=== PATIENT | female | born 1955 | race African-American/Black ===

== ENCOUNTER 2017-04-11 08:40 | Inpatient (IN) | payer OTHER ==
[~2017-04-11] VITALS: Ht 170.2 cm; Wt 75.1 kg
[2017-04-11 09:56] LABS: PLATELET COUNT 184 x10^3mcL (130-400)
[2017-04-11 09:58] LABS: RED CELL DISTRIBUTION WIDTH 15.7 % (11.5-14.5)
[2017-04-11 10:13] LABS: BILIRUBIN TOTAL 0.6 mg/dL (0.20-1.00); CALCIUM 8.6 mg/dL (8.5-10.1); CARBON DIOXIDE 27.9 mmol/L (21-32); CREATININE SERUM 1.4 mg/dL (0.6-1.0); TOTAL PROTEIN, SERUM 7.9 g/dL (6.4-8.2)
[2017-04-11 10:15] LABS: ALBUMIN 2.8 g/dL (3.4-5.0); POTASSIUM SERUM 2.6 mmol/L (3.5-5.1)
[2017-04-11 10:25] LABS: microscopic required? YES; urine erythrocyte 2+ (NEGATIVE)
[2017-04-11] MEDS ORDERED: TRAMADOL HCL50 MG PO (11:06)
[2017-04-11] MEDS ORDERED: MOTRIN (11:06)
[2017-04-11] MEDS ORDERED: CIMZIA200 MG (11:06)
[2017-04-11] MEDS ORDERED: METHOTREXATE2.5 M2 (11:07)
[2017-04-11] MEDS ORDERED: LASIX (11:08)
[2017-04-11] MEDS ORDERED: EFFER-K10 MEQ PO (11:08)
[2017-04-11 11:12] LABS: BAND NEUTROPHIL 14 % (0-10); BASOPHIL 0 % (0-2); MONOCYTE 3 % (0-7); PLATELET MORPHOLOGY PLATELETS NORMAL; SEGMENTED NEUTROPHILS 79 % (37-75); rbc morphology (normal/abnorm) ABNORMAL (NORMAL); tear drop cell (dacryocyte) 1+
[2017-04-11 11:36] LABS: RED BLOOD CELLS 3.72 M/mm3 (4.10-5.10)
[2017-04-11 11:42] LABS: MAGNESIUM 1.6 mg/dL (1.8-2.4); PHOSPHOROUS 2.8 mg/dL (2.5-4.9)
[2017-04-11 11:48] LABS: TOTAL IRON BINDING CAPACITY 299 ug/dL (250-450)
[2017-04-11 11:49] LABS: IRON 11 ug/dL (50-170)
[2017-04-11 14:42] VITALS: BP 93/54
[2017-04-11 16:55] VITALS: BP 95/58
[2017-04-11 19:56] LABS: CALCIUM 7.9 mg/dL (8.5-10.1); CARBON DIOXIDE 22.5 mmol/L (21-32); CREATININE SERUM 1.4 mg/dL (0.6-1.0); POTASSIUM SERUM 3.4 mmol/L (3.5-5.1)
[2017-04-11 20:31] LABS: AMPHETAMINE QUAL UR NONE DETECTED (NEG <=1000)
[2017-04-11 21:52] VITALS: BP 90/50
[2017-04-12 05:58] VITALS: BP 92/47
[2017-04-12 06:44] LABS: PLATELET COUNT 132 x10^3mcL (130-400)
[2017-04-12 06:45] LABS: CALCIUM 8.4 mg/dL (8.5-10.1); CARBON DIOXIDE 25.7 mmol/L (21-32); CREATININE SERUM 1.3 mg/dL (0.6-1.0); MAGNESIUM 1.8 mg/dL (1.8-2.4); PHOSPHOROUS 1.9 mg/dL (2.5-4.9)
[2017-04-12 06:49] LABS: RED CELL DISTRIBUTION WIDTH 15.5 % (11.5-14.5)
[2017-04-12 09:29] VITALS: BP 98/53
[2017-04-12 10:12] LABS: BAND NEUTROPHIL 16 % (0-10); BASOPHIL 0 % (0-2); MONOCYTE 7 % (0-7); SEGMENTED NEUTROPHILS 70 % (37-75)
[2017-04-12 10:13] LABS: PLATELET MORPHOLOGY PLATELETS NORMAL; rbc morphology (normal/abnorm) ABNORMAL (NORMAL)
[2017-04-12 12:44] VITALS: BP 115/67
[2017-04-12 17:34] VITALS: BP 127/76
[2017-04-12 21:10] VITALS: BP 115/65
[2017-04-13 01:44] VITALS: BP 135/71
[2017-04-13 05:15] VITALS: BP 130/75
[2017-04-13 06:23] LABS: PLATELET COUNT 139 x10^3mcL (130-400)
[2017-04-13 06:35] LABS: BASOPHIL % 0 % (0-2); RED CELL DISTRIBUTION WIDTH 16.3 % (11.5-14.5)
[2017-04-13 06:52] LABS: CALCIUM 8.2 mg/dL (8.5-10.1); CREATININE SERUM 1.2 mg/dL (0.6-1.0); MAGNESIUM 1.7 mg/dL (1.8-2.4); PHOSPHOROUS 2.1 mg/dL (2.5-4.9); POTASSIUM SERUM 3.7 mmol/L (3.5-5.1)
[2017-04-13 08:58] VITALS: BP 105/58
[2017-04-13 12:32] VITALS: BP 135/66
[2017-04-13 16:40] VITALS: BP 113/70
[2017-04-13 20:24] VITALS: BP 112/59
[2017-04-14 06:24] VITALS: BP 115/64
[2017-04-14 06:34] LABS: CARBON DIOXIDE 22.9 mmol/L (21-32); CREATININE SERUM 1.1 mg/dL (0.6-1.0); MAGNESIUM 1.7 mg/dL (1.8-2.4); PHOSPHOROUS 2.7 mg/dL (2.5-4.9); POTASSIUM SERUM 3.2 mmol/L (3.5-5.1)
[2017-04-14 06:42] LABS: PLATELET COUNT 153 x10^3mcL (130-400)
[2017-04-14 07:09] LABS: BASOPHIL % 0 % (0-2); RED CELL DISTRIBUTION WIDTH 16.2 % (11.5-14.5)
[2017-04-14 09:08] VITALS: BP 97/52
[2017-04-14] MEDS ORDERED: LEVAQUIN750 MG PO (09:33)
[2017-04-14] MEDS ORDERED: LAC PO (09:42)
[2017-04-14] MEDS ORDERED: ULT50 PO (09:42)
[2017-04-14 13:11] VITALS: BP 97/52
== END 2017-04-14 14:40 | disposition home or self-care (01) | DRG 689 ==
LOC: ED 08:40 → DU 10:49 → MU 04-14 09:29
PROVIDERS: Emergency Medicine; ADMIT Family Medicine
DX: N39.0 Urinary tract infection, site not specified (principal); N17.0 Acute kidney failure with tubular necrosis; E43 Unspecified severe protein-calorie malnutrition; E87.1 Hypo-osmolality and hyponatremia; E87.6 Hypokalemia; E83.39 Other disorders of phosphorus metabolism; E83.42 Hypomagnesemia; R73.03 Prediabetes; D64.9 Anemia, unspecified; M06.9 Rheumatoid arthritis, unspecified; N28.1 Cyst of kidney, acquired; E03.9 Hypothyroidism, unspecified; Z98.84 Bariatric surgery status; Z68.25 Body mass index [BMI] 25.0-25.9, adult; Z79.899 Other long term (current) drug therapy
CPT/HCPCS: 82962; 83880; 87804; 90658; J1100; J1885; J1956; J2270; J2405; J3475; J3480; J7030; J8610; Q0092

== ENCOUNTER 2017-04-22 12:21 | Inpatient (IN) | payer OTHER ==
[~2017-04-22] VITALS: Ht 172.7 cm; Wt 75.8 kg
[~2017-04-22 12:21] MED LIST: CIMZIA200 MG; EFFER-K10 MEQ PO; LAC PO; LASIX; LEVAQUIN750 MG PO; METHOTREXATE2.5 M2; MOTRIN; TRAMADOL HCL50 MG PO; ULT50 PO
[2017-04-22 13:15] LABS: BASOPHIL % 0.3 % (0-2)
[2017-04-22 13:16] LABS: PLATELET COUNT 436 x10^3mcL (130-400); RED CELL DISTRIBUTION WIDTH 16.7 % (11.5-14.5)
[2017-04-22 13:23] LABS: CARBON DIOXIDE 29.6 mmol/L (21-32); CREATININE SERUM 1.3 mg/dL (0.6-1.0); POTASSIUM SERUM 3.1 mmol/L (3.5-5.1)
[2017-04-22 13:27] LABS: BILIRUBIN TOTAL 0.2 mg/dL (0.20-1.00)
[2017-04-22 13:32] LABS: TOTAL PROTEIN, SERUM 8.7 g/dL (6.4-8.2)
[2017-04-22 13:54] LABS: T3 TOTAL 0.82 ng/mL
[2017-04-22 14:32] LABS: FREE T4 1.34 ng/dL (0.76-1.46); FREE THYROXINE INDEX 3.6 ug/dL (1.4-4.5); T4(THYROXINE) 9.7 ug/dL (4.7-13.3)
[2017-04-22 17:24] VITALS: BP 141/73
[2017-04-22] MEDS ORDERED: HYDROCHLOROTHIA25 MG PO (17:39)
[2017-04-22] MEDS ORDERED: [UNRECOGNIZED DRUG - OTHER] PO (17:40)
[2017-04-22] MEDS ORDERED: IBUPROFEN800 MG PO (17:41)
[2017-04-22] MEDS ORDERED: ZOCOR40 MG PO (17:41)
[2017-04-22] MEDS ORDERED: Cascara Sagrada PO (17:42)
[2017-04-22] MEDS ORDERED: MASON NATURAL1000 IU PO (17:43)
[2017-04-22] MEDS ORDERED: FOL1 PO (17:44)
[2017-04-22 18:17] LABS: CALCIUM 8.7 mg/dL (8.5-10.1); CARBON DIOXIDE 27.8 mmol/L (21-32); CREATININE SERUM 1.3 mg/dL (0.6-1.0); MAGNESIUM 1.9 mg/dL (1.8-2.4); PHOSPHOROUS 3.9 mg/dL (2.5-4.9); POTASSIUM SERUM 4.1 mmol/L (3.5-5.1)
[2017-04-22 18:25] VITALS: BP 141/73
[2017-04-22 20:54] VITALS: BP 102/52
[2017-04-22 21:37] LABS: microscopic required? NO
[2017-04-22 22:01] LABS: UA SPECIFIC GRAVITY <=1.005 (1.005-1.035); urine erythrocyte NEGATIVE (NEGATIVE)
[2017-04-22 22:14] LABS: AMPHETAMINE QUAL UR NONE DETECTED (NEG <=1000)
[2017-04-23 05:27] VITALS: BP 101/45
[2017-04-23 05:44] VITALS: BP 101/45
[2017-04-23 07:51] LABS: CALCIUM 8.7 mg/dL (8.5-10.1); CREATININE SERUM 1.1 mg/dL (0.6-1.0); MAGNESIUM 1.8 mg/dL (1.8-2.4); PHOSPHOROUS 4.1 mg/dL (2.5-4.9); POTASSIUM SERUM 3.6 mmol/L (3.5-5.1)
[2017-04-23 08:02] LABS: BASOPHIL % 0.6 % (0-2); PLATELET COUNT 379 x10^3mcL (130-400); RED CELL DISTRIBUTION WIDTH 16.8 % (11.5-14.5)
[2017-04-23 09:33] VITALS: BP 128/68
[2017-04-23 13:38] VITALS: BP 98/68
[2017-04-23 17:44] VITALS: BP 101/58
[2017-04-23 21:06] VITALS: BP 104/60
[2017-04-24] VITALS (7 sets, daily range): BP systolic 103–142; BP diastolic 56–76; Ht 172.7 cm; Wt 75.8 kg
[2017-04-24 06:54] LABS: BASOPHIL % 0.4 % (0-2); PLATELET COUNT 371 x10^3mcL (130-400)
[2017-04-24 07:02] LABS: RED CELL DISTRIBUTION WIDTH 17.3 % (11.5-14.5)
[2017-04-24 07:11] LABS: CALCIUM 8.5 mg/dL (8.5-10.1); CARBON DIOXIDE 26.7 mmol/L (21-32); CREATININE SERUM 1.2 mg/dL (0.6-1.0); MAGNESIUM 1.8 mg/dL (1.8-2.4); PHOSPHOROUS 3.6 mg/dL (2.5-4.9); POTASSIUM SERUM 3.6 mmol/L (3.5-5.1)
[2017-04-24 07:20] LABS: ALBUMIN 2.4 g/dL (3.4-5.0)
[2017-04-25 05:29] VITALS: BP 98/56
[2017-04-25 07:15] LABS: CALCIUM 8.8 mg/dL (8.5-10.1); CARBON DIOXIDE 27.5 mmol/L (21-32); CREATININE SERUM 1.2 mg/dL (0.6-1.0); POTASSIUM SERUM 3.9 mmol/L (3.5-5.1)
[2017-04-25 07:29] LABS: BASOPHIL % 0.5 % (0-2); PLATELET COUNT 379 x10^3mcL (130-400); RED CELL DISTRIBUTION WIDTH 17.1 % (11.5-14.5)
[2017-04-25 09:59] VITALS: BP 109/60
[2017-04-25] MEDS ORDERED: CLOPIDOGREL75 M1 PO (12:38)
[2017-04-25] MEDS ORDERED: LIPITOR80 MG PO (12:38)
[2017-04-25] MEDS ORDERED: ZES10 PO (12:38)
[2017-04-25] MEDS ORDERED: ECO81 PO (12:39)
[2017-04-25 13:12] VITALS: BP 109/60
[2017-04-25 13:20] VITALS: BP 115/71
== END 2017-04-25 14:14 | disposition home or self-care (01) | DRG 286 ==
LOC: ED 12:21 → DU 16:06
PROVIDERS: Family Medicine; Specialist; ADMIT Family Medicine
PROC: 4A023N7 Measurement of Cardiac Sampling and Pressure, Left Heart, Percutaneous Approach (ICD-10-PCS; principal; 2017-04-22)
PROC: B211YZZ Fluoroscopy of Multiple Coronary Arteries using Other Contrast (ICD-10-PCS; 2017-04-22)
PROC: B215YZZ Fluoroscopy of Left Heart using Other Contrast (ICD-10-PCS; 2017-04-22)
DX: I25.10 Atherosclerotic heart disease of native coronary artery without angina pectoris (principal); N17.0 Acute kidney failure with tubular necrosis; E43 Unspecified severe protein-calorie malnutrition; E87.6 Hypokalemia; R73.03 Prediabetes; M06.9 Rheumatoid arthritis, unspecified; K59.00 Constipation, unspecified; J30.9 Allergic rhinitis, unspecified; E66.3 Overweight; E87.8 Other disorders of electrolyte and fluid balance, not elsewhere classified; N28.1 Cyst of kidney, acquired; D64.9 Anemia, unspecified; Z68.25 Body mass index [BMI] 25.0-25.9, adult
CPT/HCPCS: CLHCL; 82962; 83880; 84439; 86022; C1769; C1887; C1894; J1644; J2001; J2250; J2270; J2405; J3010; J7030; J7040; J7050; Q0092; Q9967